=== PATIENT | female | born 1990 | race Native Hawaiian/Other Pacific Islander ===

== ENCOUNTER 2017-07-06 18:24 | Inpatient (IN) | payer OTHER ==
[2017-07-06 18:45] VITALS: BMI 29.2
[2017-07-06] MEDS ORDERED: Penicillin G 5 Million Unit Vial IVPB ONE ×2 (18:54→20:17)
[2017-07-06] MEDS ORDERED: Lactated Ringer's 1,000 ML IV SCH ×2 (19:00)
--- NOTE | 2017-07-06 19:54 | OBHP ---
Datetime: 07/06/2017 18:47 IP Adm Impression: Term, intrauterine ; Active labor; Intact Membranes IP Admit Plan: Admit to unit; Initiate labor protocol Admit Comment, IP Provider: 27 y.o. LMP unsure,. BHUMIKA 07/13/17, EGA 39 weeks by sono at 10+ week s, c/o vaginal bleeidng at 1800 hours: heavy, bright red "like the beginning of my period". Had had p renatal visit earlier today with cervical exam. Passed mucous plug last night; had had a previous epi sode of vaginal spotting 0900 hours. (+) AFM; denies LOF. (+) ctx - onset last night, pain scale 5/1 0; now 8/10. care: Dr. Cordova - E. coli UTI 01/2017, treated. 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 x 1 1/2 years. Currently unemployed Fam Hx:Mother alive 59 y.o. Father alive 60 y.o. - both, no med issues. No known fam h/o cancer P.E.: as above. Small, in moderate discomfort with contractions. Awake, alert, oriented to time, person and place. Pleasant and cooperative. present. Assessment: 27 y.o. P0, 39 weeks, entering active phase of labor. Category 1 tracing. GBS (+) for penicillin. Clinically stable. Plan: 1) Admit 2) NPO 3) IVFs 4) Continuous EFM 5) Admission labs 6) Pain management, upon request 7) Expectant management - as per Dr. Cordova Pelvic Type - PN: Adequate Extremities - PN: Normal Abdomen - PN: Normal Back - PN: Normal Breast - PN: Not Done Lungs - PN: Normal Heart - PN: Normal Thyroid - PN: Not Done Neurologic - PN: Normal HEENT - PN: Normal General - PN: Normal Presentation-Admit: Vertex FHR - Baseline A Provider: 135 Membranes, Provider: Intact Contraction Comments Provider: 2-3 Comments, ACOG Physical Exam: Abdomen: Gravid. Moderate intensity. Fundal height 40 cm All other systems reviewed and are negative Gestation - Est Wks by US: 40.0 IP Hx Assessment: The History has been Reviewed and is Current EGA AdmitDate IP: 39.0 Vital Signs Provider: Reviewed; Within Normal Limits IP Indication for Induction: Not Applicable IP Chief Complaint: Vaginal bleeding NICHD Variability Prov Fetus A: Moderate 6-25bpm NICHD Accel Fetus A IP Provider: 15X15 FHR Category Provider Fetus A: Category I NICHD Decel Fetus A IP Provider: None Dilatation, Provider: 4 Effacement, Provider: 60 Station, Provider: -2 Genitourinary Exam: Normal DTRs - PN: Not Done
[2017-07-06 20:08] LABS: BASO % 0.4 % (0.0-2.0); EOS # 0.2 K/uL (0.0-0.7); EOS % 1.6 % (0.0-4.0); HEMATOCRIT 38.7 % (34.0-47.0); LYMPH # 1.7 K/uL (1.0-4.3); LYMPH % 14.9 % (20.0-40.0); MEAN CELL VOLUME 92.2 fL (81.0-99.0); MEAN CORPUSCULAR HEMOGLOBIN 31.8 pg (27.0-31.0); MEAN CORPUSCULAR HGB CONC 34.5 g/dL (33.0-37.0); MEAN PLATELET VOLUME 9.4 fL (7.2-11.7); MONO # 0.8 K/uL (0.0-0.8); MONO % 7.2 % (0.0-10.0); WHITE BLOOD COUNT 11.7 K/uL (4.8-10.8)
[2017-07-06 20:12] LABS: CHLORIDE 104 mmol/L (98-107); POTASSIUM 3.8 mmol/L (3.6-5.2); SODIUM 135 mmol/L (132-148)
[2017-07-06 20:14] LABS: ALB/GLOB RATIO 1.1 (1.0-2.1); AST/SGOT 26 U/L (14-36); BILIRUBIN,TOTAL 0.4 mg/dL (0.2-1.3); BLOOD UREA NITROGEN 9 mg/dL (7-17); CARBON DIOXIDE 22 mmol/L (22-30); GFR AFRICAN-AMERICAN > 60; TOTAL PROTEIN 7.2 g/dL (6.3-8.3)
[2017-07-06 20:15] LABS: ALKALINE PHOSPHATASE 160 U/L (38-126); ALT/SGPT 27 U/L (9-52); GLUCOSE,RANDOM 82 mg/dL (65-105)
[2017-07-06] MEDS ORDERED: Bupivacaine 0.125%/FentaNYL 200 ML EPI ONE (20:23)
[2017-07-06 20:27] LABS: URINE BILIRUBIN NEGATIVE (NEGATIVE); URINE COLOR Straw (YELLOW); URINE GLUCOSE (UA) 1+ mg/dL (Normal); URINE KETONE NEGATIVE (NEGATIVE); URINE LEUKOCYTE ESTERASE NEG Leu/uL (Negative); URINE PROTEIN NEGATIVE (NEGATIVE); URINE UROBILINOGEN NORMAL mg/dL (0.2-1.0); WBC URINE 1 /hpf (0-5)
[2017-07-06 20:29] LABS: URINE BLOOD 2+ (NEGATIVE)
[2017-07-06] MEDS ORDERED: Penicillin G Potassium 2.5 MU in Dextrose 5% In Water 50 ML IV SCH (20:30)
[2017-07-07] MEDS ORDERED: Lidocaine 2% Inj (20ml) ONE (04:26)
--- NOTE | 2017-07-07 04:51 | OBPN ---
Datetime: 07/07/2017 04:50 IP Progress Impression: Normal progression of labor IP Procedures: Sterile Vag Exam FHR - Baseline A Provider: 120 IP Progress Note Comment: pt was examined atb ed side ve fd/100/0 will start pushing anticupate Vital Signs Provider: Reviewed; Within Normal Limits NICHD Accel Fetus A IP Provider: 15X15 FHR Category Provider Fetus A: Category I NICHD Variability Prov Fetus A: Moderate 6-25bpm Dilatation, Provider: 10 Effacement, Provider: 100 Station, Provider: 0 Datetime: 07/06/2017 18:47 Membranes, Provider: Intact Contraction Comments Provider: 2-3 Gestation - Est Wks by US: 40.0 Presentation-Admit: Vertex NICHD Decel Fetus A IP Provider: None
[2017-07-07] MEDS ORDERED: Oxycodone/Acetaminophen 5/325 mg Tab PO PRN (04:52)
--- NOTE | 2017-07-07 04:57 | OBADHP ---
Datetime: 07/07/2017 04:50 FHR - Baseline A Provider: 120 Vital Signs Provider: Reviewed; Within Normal Limits NICHD Variability Prov Fetus A: Moderate 6-25bpm NICHD Accel Fetus A IP Provider: 15X15 FHR Category Provider Fetus A: Category I Dilatation, Provider: 10 Effacement, Provider: 100 Station, Provider: 0 Datetime: 07/06/2017 18:47 Admit Comment, IP Provider: 27 y.o. LMP unsure,. BHUMIKA 07/13/17, EGA 39 weeks by sono at 10+ week s, c/o vaginal bleeidng at 1800 hours: heavy, bright red "like the beginning of my period". Had had p renatal visit earlier today with cervical exam. Passed mucous plug last night; had had a previous epi sode of vaginal spotting 0900 hours. (+) AFM; denies LOF. (+) ctx - onset last night, pain scale 5/1 0; now 8/10. care: Dr. Cordova - E. coli UTI 01/2017, treated. 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 x 1 1/2 years. Currently unemployed Fam Hx:Mother alive 59 y.o. Father alive 60 y.o. - both, no med issues. No known fam h/o cancer P.E.: as above. Small, in moderate discomfort with contractions. Awake, alert, oriented to time, person and place. Pleasant and cooperative. present. Assessment: 27 y.o. P0, 39 weeks, entering active phase of labor. Category 1 tracing. GBS (+) for penicillin. Clinically stable. Plan: 1) Admit 2) NPO 3) IVFs 4) Continuous EFM 5) Admission labs 6) Pain management, upon request 7) Expectant management - as per Dr. Cordova agrees with above IP Chief Complaint: Uterine contractions; Vaginal bleeding EGA AdmitDate IP: 39.0
[2017-07-07] MEDS ORDERED: Oxytocin 30 UNIT 30 UNITS/500 ML BAG IV SCH (05:00)
--- NOTE | 2017-07-07 06:57 | OBDS ---
DELIVERY PERSONNEL Delivery Doctor: Erasto Cordova MD Anesthesiologist: Dr Redmond MATERNAL INFORMATION Delivery Anesthesia: Epidural Provider Comments: baby deliverd in meme. cord arround neck . held with nelly and cut. placente delive rd manually. end clean. no com LABOR SUMMARY EDC: 07/13/2017 00:00 No. Babies in Womb: 1 Attempted: No Labor Anesthesia: Epidural LABOR INFORMATION Reason for Induction: Not Applicable Onset of Labor: 07/06/2017 18:00 Oxytocin: N/A Group B Beta Strep: Positive Antibiotics # of Doses: 3 Antibiotics Time of Last Dose: 0430 07/07/17 Steroids Given: None Reason Steroids Not Administered: Not Applicable MEMBRANES Membranes Rupture Method: Spontaneous Rupture of Membranes: 07/06/2017 21:45 Length of Rupture (hrs): 8.82 Amniotic Fluid Color: Clear Amniotic Fluid Amount: Moderate Amniotic Fluid Odor: Normal STAGES OF LABOR Stage 3 hrs: 0 Stage 3 min: 2 Total Time in Labor hrs: 12 Total Time in Labor min: 36 VAGINAL DELIVERY Episiotomy: Right Mediolateral Laceration Extension: N/A Laceration Type: None Laceration Repair Note: repaired with 2 vircyl and 3 chromic Initial Vag Sponge Count: 10 Initial Vag Sharps Count: 0 Sponge Count Correct: Yes Sharps Count Correct: Yes BABY A INFORMATION Delivery Date/Time: 07/07/2017 06:34 Method of Delivery: Vaginal Forceps: N/A Vacuum Extraction: N/A Shoulder Dystocia : No SHOULDER DYSTOCIA BABY A Infant Delivery Date/Time: 07/07/2017 06:34 PRESENTATION/POSITION BABY A Presentation: Cephalic Cephalic Presentation: Vertex Vertex Position: Left Occipital Anterior Breech Presentation: N/A PLACENTA INFORMATION BABY A Placenta Delivery Time : 07/07/2017 06:36 INFORMATION BABY A Gestational Age at Delivery: 39.0 Gestational Status: Term Infant Outcome : Liveborn Infant Condition : Stable Infant Sex: Male IDENTIFICATION/MEDS BABY A ID Band Number: [id number] Sensor Number: [id number] WEIGHT/LENGTH BABY A Birthweight (gms): 3050 Weight (lb): 6 Infant Weight (oz): 12 Length Inches: 19.00 Infant Length cms: 48.3 CORD INFORMATION BABY A Nuchal Cord : Around Neck x1, Loose
--- NOTE | 2017-07-08 06:53 | OBPPN ---
Datetime: 07/08/2017 06:43 PP Pain Prov: Within normal limits PP Nausea Prov: Denies PP Flatus Prov: Yes PP BM Prov: Yes PP Abdomen/Uterus Prov: Normal PP Lochia Prov: Normal PP Extremities Prov: Normal PP Comments Phys Exam Prov: fudus below umb ext no edema,no calf ten PP Impression Prov: Normal progression PP Plan Prov: Continue present management PP Progress Note Prov: pt was seen at bed side, pain under control,no n/v, toletrting deit,voiding,m in lochia, flatus= ppd#1 s/p cbc reg deit cont pp care cont pain management Vital Signs Provider PP: Reviewed; Within Normal Limits
[2017-07-08 09:07] VITALS: RESP 18
[2017-07-09 08:12] VITALS: BP 107/72; PULSE 82; TEMP 98.9; O2SAT 100
[2017-07-09 10:00] LABS: BASO % 0.3 % (0.0-2.0); EOS # 0.3 K/uL (0.0-0.7); EOS % 1.9 % (0.0-4.0); HEMATOCRIT 34.3 % (34.0-47.0); LYMPH # 1.4 K/uL (1.0-4.3); LYMPH % 10.6 % (20.0-40.0); MEAN CELL VOLUME 93.7 fL (81.0-99.0); MEAN CORPUSCULAR HEMOGLOBIN 32.3 pg (27.0-31.0); MEAN CORPUSCULAR HGB CONC 34.4 g/dL (33.0-37.0); MONO # 0.6 K/uL (0.0-0.8); MONO % 4.7 % (0.0-10.0); RED CELL DISTRIBUTION WIDTH 14.1 % (11.5-14.5); WHITE BLOOD COUNT 13.5 K/uL (4.8-10.8)
== END 2017-07-09 11:30 | disposition home or self-care (01) | DRG 373 ==
LOC: C.EROB 18:24 → C.4D 18:55 → C.4M 07-07 09:10
PROVIDERS: ADMIT Obstetrics & Gynecology; ATTEND Obstetrics & Gynecology
PROC: 0W8NXZZ Division of Female Perineum, External Approach (ICD-10-PCS; principal; 2017-07-07)
PROC: 10E0XZZ Delivery of Products of Conception, External Approach (ICD-10-PCS; 2017-07-07)
PROC: 10907ZC Drainage of Amniotic Fluid, Therapeutic from Products of Conception, Via Natural or Artificial Opening (ICD-10-PCS; 2017-07-07)
DX: O99.824 Streptococcus B carrier state complicating childbirth (principal); O69.81X0 Labor and delivery complicated by cord around neck, without compression, not applicable or unspecified; Z3A.39 39 weeks gestation of pregnancy; O23.43 Unspecified infection of urinary tract in pregnancy, third trimester; Z37.0 Single live birth